=== PATIENT | female | born 1950 | race Caucasian/White ===

== ENCOUNTER 2017-10-01 11:11 | Inpatient (IN) | payer OTHER ==
[2017-09-10 11:35] VITALS: BMI 23.0
--- NOTE | 2017-09-10 12:18 | PAT Medication Instructions ---
Service Date Sep 10, 2017. Current Home Medication List Ibuprofen Tab (Advil), 400 MG PO QD PRN for Pain Pseudoephedrine-Guaifenesin (Mucinex D), 1 TAB PO QD PRN for Cough Medication Instructions For Your Scheduled Surgery -Check with your surgeon for instructions for: Ibuprofen Tab (Advil), 400 MG PO QD PRN for Pain - Hold the following medications the morning of surgery: Pseudoephedrine-Guaifenesin (Mucinex D), 1 TAB PO QD PRN for Cough - Take the following medications as scheduled the night before surgery: Pseudoephedrine-Guaifenesin (Mucinex D), 1 TAB PO QD PRN for Cough (if needed) If you have any questions please call us at [phone] or [phone] or [phone]
--- NOTE | 2017-09-10 12:45 | DIAGNOSTIC IMAGING REPORT ---
CHEST 2 VIEWS ROUTINE CLINICAL HISTORY: Preoperative evaluation. COMPARISON STUDY: No previous studies for comparison. FINDINGS: Lung volumes are normal. No pneumothorax or pleural effusion is identified. Cardiac size is normal. Mediastinal contours are normal. There is no evidence for pulmonary edema. IMPRESSION: No acute cardiopulmonary findings. Electronically signed by: Arpit Ly M.D. 09/10/2017 12:44 PM Dictated Date/Time: 09/10/2017 12:43 PM
[2017-09-10 13:15] LABS: BASO % 0.3 %; BASO ABS # 0.02 K/uL (0-0.2); EOS % 1.7 %; EOS ABS # 0.13 K/uL (0-0.5); HEMATOCRIT 41.4 % (37-47); HEMOGLOBIN 13.5 g/dL (12.0-16.0); IG# 0.01 K/uL (0.00-0.02); LYMPH % 30.1 %; LYMPH ABS # 2.29 K/uL (1.2-3.4); MEAN CELL VOLUME 91.8 fL (80-100); MEAN CORPUSCULAR HEMOGLOBIN 29.9 pg (25-34); MEAN CORPUSCULAR HGB CONC 32.6 g/dl (32-36); MEAN PLATELET VOLUME 9.5 fL (7.4-10.4); MONO % 7.6 %; MONO ABS # 0.58 K/uL (0.11-0.59); NEUT % 60.2 %; NEUT ABS # 4.59 K/uL (1.4-6.5); PLATELET COUNT 284 K/uL (130-400); RED CELL DISTRIBUTION WIDTH CV 13.2 % (11.5-14.5); RED CELL DISTRIBUTION WIDTH SD 44.3 fL (36.4-46.3); WHITE BLOOD COUNT 7.62 K/uL (4.8-10.8)
[2017-09-10 13:31] LABS: BLOOD UREA NITROGEN 16 mg/dl (7-18); CALCIUM 8.8 mg/dl (8.5-10.1); CARBON DIOXIDE 28 mmol/L (21-32); CREATININE 0.62 mg/dl (0.60-1.20); GLUCOSE 93 mg/dl (70-99); POTASSIUM 3.6 mmol/L (3.5-5.1); SODIUM 140 mmol/L (136-145)
[2017-09-10 13:36] LABS: PTT PATIENT 25.2 SECONDS (21.0-31.0)
--- NOTE | 2017-09-23 18:35 | HISTORY & PHYSICAL EXAMINATION ---
DATE OF ADMISSION: 10/01/2017 CHIEF COMPLAINT: Bilateral knee pain and discomfort, left side greater than the right. HISTORY OF PRESENT ILLNESS: A 67-year-old female who I have been following for several years dating back to 2010 for bilateral knee pain, DJD. We have been putting shots in her knee, which have become less successful overtime. She has chronic pain in both knees. The left side is a bit worse than the right. She is bothered by instability as well. The left knee gives out particularly on an unexpected basis. She now like to proceed with surgical treatment. She has been through extensive therapy many years ago. She continues to try and stay active, but having more difficulty doing so due to her knee pain and instability. Of note, the patient has a history of DDH and had her right hip replaced by Dr. Clark and had it redone a month or so later done in [place]. She had a left hip replaced in [place] in 2004. She has done well with respect to her hips for the most part. She notices a slight leg length discrepancy. PAST MEDICAL HISTORY: Significant for: 1. DDH. 2. Osteoarthritis. PAST SURGICAL HISTORY: Include: 1. Right hip replacement x2. 2. Left hip replacement done in [place] in 2004. 3. Hip surgery as an infant. ALLERGIES: CODEINE, WHICH CAUSE NAUSEA. CURRENT MEDICATIONS: Include: 1. Advil. 2. Mucinex. SOCIAL HISTORY: A 67-year-old female. She works as a realtor. She is . FAMILY HISTORY: Noncontributory. REVIEW OF SYSTEMS: Negative for diabetes, neurologic problems, vascular problems, or bleeding disorders. Denies any chest pain or shortness of breath. No history of DVT or PE. PHYSICAL EXAMINATION: GENERAL: Reveals a healthy, pleasant middle-aged female. Looks to be in excellent health. HEENT: Benign. NECK: Supple. No lymphadenopathy. LUNGS: Clear to auscultation. HEART: Regular rate and rhythm. ABDOMEN: Soft, nontender, nondistended. EXTREMITIES: Grossly neurovascularly intact except as follows. Examination of both knees reveals the patient walks with valgus alignment to her knees. Her valgus alignment is made worse with weightbearing. Range of motion of both knees is pretty symmetric with full extension and 20 degrees of flexion. There is no gross instability. She has got moderate size effusion in both knees. No particular pain with hip motion on either side. X-RAYS: X-rays of both knees were reviewed. Shows advanced bilateral knee DJD. She has got valgus alignment to her knees with complete loss of lateral joint space. ASSESSMENT: A 67-year-old white female with a history of DDH in the past, status post hip surgery, bilateral hip replacements with advanced bilateral knee DJD, left side worse than the right. She has failed conservative treatment and would like to have her left knee replaced. PLAN: We will take her to the operating room and do a left total knee replacement. The risks and benefits of this procedure were explained to the patient include, but not limited to DVT, PE, , infection, neurological injury, vascular injury, bleeding problem, pain, limited range of motion, stiffness, failure to relieve symptoms, incomplete relief of symptoms, need for further surgery in future, fracture, leg length inequality, nerve palsy, need for revision surgery, etc. The patient understands and desires. Informed consent was obtained. As far as discharge plans, she is planning to be discharged to home using her 's assistance. She is a Jehovah Witness who are not going to be able to give her blood. We will talk about the [facility] system. We may use that if the patient is acceptable for that.
[~2017-10-01] VITALS: Ht 162.6 cm; Wt 62.1 kg
[2017-10-01] VITALS (8 sets, daily range): BP systolic 91–146; BP diastolic 51–88; PULSE 72–94; TEMP 36.4–36.7; O2SAT 94–97; Ht 162.6 cm; Wt 62.1 kg
[2017-10-01] MEDS: TRANEXAMIC ACID INJ 1,000 MG x 1 Bag Intra-Op IV SCH ×4 (06:00→06:30)
[~2017-10-01 11:11] MED LIST: ACETAMINOPHEN 500 MG TAB PO SCH; ATROPINE SULFATE 0.1 MG/ML 5ML SYR IV PRN; BUPIVACAINE 0.25% 30 ML VIAL ONE; BUPIVACAINE 0.5 % 5 MG/1 ML PF 10ML VIAL ONE; BUPIVACAINE LIPOSOME 266 MG, BUPIVACAINE/EPINEPHRINE INJ 50 ML, SODIUM CHLORIDE 0.9% PF... INFIL SCH; CEFAZOLIN 2000MG IV PUSH 15 ML IV SCH; EpHEDrine SULFATE INJ 50 MG/ML AMP IV PRN; FAMOTIDINE 20 MG TAB PO SCH; FENTANYL CITRATE INJ 50 MCG/1 ML 2 ML VIAL IV PRN; GABAPENTIN 300 MG CAP PO SCH; HYDROmorphone INJ 0.5 MG/0.5 ML SYR IV PRN; IBUP-103 PO; LABETALOL HCL IV 5 MG/ML 20ML IV PRN; LACTATED RINGER'S 1000ML 1,000 ML IV SCH; LACTATED RINGER'S 1000ML 500 ML IV SCH; LACTATED RINGER'S 1000ML IV SCH; METOCLOPRAMIDE HCL 10 MG TAB PO SCH; ONDANSETRON INJ 2 MG/ML 2 ML VIAL IV PRN; PHENYLEPHRINE 100MCG/ML 5ML SYR IV PRN; PROMETHAZINE HCL INJ 12.5 MG in SODIUM CHLORIDE 0.9% 50ML 50 ML IV PRN; PSEU60TA80 PO; SCOPOLAMINE 1.5 MG TDSY TD SCH
--- NOTE | 2017-10-01 11:29 | History & Physical Bridge Note ---
H&P Re-Evaluation Bridge Note: I have examined the patient, reviewed the History & Physical and in the interval since the performance of the History & Physical I have noted the following changes of clinical significance: No changes noted
[2017-10-01] MEDS ORDERED: FENTANYL CITRATE INJ 50 MCG/1 ML 2 ML VIAL ONE (12:02)
[2017-10-01] MEDS ORDERED: MIDAZOLAM HCL 1 MG/ML 2ML VIAL ONE (12:02)
[2017-10-01] MEDS ORDERED: PROPOFOL IV EMULSION 10 MG/ML 20 ML VIAL ONE ×2 (12:04→15:25)
[2017-10-01] MEDS ORDERED: LIDOCAINE HCL 2% 2 ML VIAL (20MG/ML) ONE (12:04)
[2017-10-01] MEDS ORDERED: BUPIVACAINE LIPOSOME 1/3% 266 MG/20 ML VIAL ONE (13:24)
[2017-10-01] MEDS ORDERED: BUPIVACAINE 0.25% 30 ML VIAL ONE (13:24)
[2017-10-01] MEDS ORDERED: BACITRACIN 50000 UNIT VIAL ONE (13:24)
[2017-10-01] MEDS ORDERED: EpINEphrine INJ 1MG/ML AMP 1 MG/ML AMP ONE (13:24)
[2017-10-01] MEDS ORDERED: SODIUM CHLORIDE 0.9% PF 50 ML VIAL ONE (13:24)
[2017-10-01] MEDS ORDERED: EpHEDrine SULFATE INJ 50 MG/ML AMP ONE (14:09)
[2017-10-01] MEDS ORDERED: ONDANSETRON INJ 2 MG/ML 2 ML VIAL ONE (14:09)
[2017-10-01] MEDS ORDERED: DEXAMETHASONE SOD INJ 4 MG/ML VIAL ONE (14:09)
[2017-10-01] MEDS ORDERED: PHENYLEPHRINE 100MCG/ML 5ML SYR ONE (14:30)
--- NOTE | 2017-10-01 15:34 | [facility] Post Operative Brief Note ---
Immediate Operative Summary Operative Date October 01, 2017. Pre-Operative Diagnosis Left Knee Advanced Degenerative Joint Disease Post-Operative Diagnosis Left Knee Advanced Degenerative Joint Disease Procedure(s) Performed Left Total Knee Arthroplasty Surgeon Dr. Blackman General Production Manager Surgeon(s) RODRIGO Dee Estimated Blood Loss 50ml Findings Consistent with Post-Op Diagnosis Fluids (cc crystalloids) 1600 cc Specimens A. Left Knee Bone and Tissue Drains None Anesthesia Type MAC Spinal Regional Complication(s) none Disposition Accompanied Pt To Recover: no Disposition: Recovery Room / PACU Overlapping Procedure I was present for: the critical portions of procedure. I was immediately available: during the entire case
[2017-10-01] MEDS ORDERED: BISACODYL 10 MG SUPP PR PRN (15:45)
[2017-10-01] MEDS ORDERED: ALUMINUM/MAGNESIUM/SIMETH (MAALOX MAX) 30 ML UDC PO PRN (15:45)
[2017-10-01] MEDS ORDERED: HYDROmorphone INJ 0.5 MG/0.5 ML SYR IV PRN (15:45)
[2017-10-01] MEDS ORDERED: ZOLPIDEM TARTRATE 5 MG TAB PO PRN (15:45)
[2017-10-01] MEDS ORDERED: METOCLOPRAMIDE HCL INJ 5 MG/ML 2 ML VIAL IV PRN (15:45)
[2017-10-01] MEDS ORDERED: ONDANSETRON INJ 2 MG/ML 2 ML VIAL IV PRN (15:45)
[2017-10-01] MEDS ORDERED: SILVER SULFADIAZINE 1% CR 50 GM JAR EXT PRN (15:45)
[2017-10-01] MEDS ORDERED: MAGNESIUM HYDROXIDE SUSP 30 ML UDC PO PRN (15:45)
[2017-10-01] MEDS: CHECK SCOPOLAMINE PATCH PLACEMENT SCH ×2 (16:00→23:09)
--- NOTE | 2017-10-01 16:05 | DIAGNOSTIC IMAGING REPORT ---
L KNEE 2 VIEWS ROUTINE CLINICAL HISTORY: Degenerative arthritis. Postop study. COMPARISON: Outside radiograph dated 09/22/2017 DISCUSSION: There are postsurgical changes of a total left knee arthroplasty and patellar resurfacing. The femoral and tibial components appear well seated. There are overlying skin jasmyn. There is air within the soft tissues consistent with recent surgery. IMPRESSION: Postsurgical changes of a total left knee arthroplasty. Electronically signed by: Michele Gr M.D. 10/01/2017 4:03 PM Dictated Date/Time: 10/01/2017 4:02 PM
--- NOTE | 2017-10-01 16:29 | Anesthesiology Progress Note ---
Anesthesia Post Op Note Date & Time October 01, 2017 at 16:28 Vital Signs Pain Intensity: 0 Vital Signs Past 12 Hours Date Time Temp Pulse Resp B/P (MAP) Pulse Ox O2 Delivery O2 Flow Rate FiO2 10/01/17 16:10 36.2 96 18 131/84 98 Room Air 10/01/17 16:00 99 17 133/86 98 Room Air 10/01/17 15:50 95 18 128/74 98 Room Air 10/01/17 15:41 36.3 95 16 132/80 98 Room Air 10/01/17 11:55 36.7 89 18 146/76 97 Room Air Notes Mental Status: alert / awake / arousable, participated in evaluation Nausea / Vomiting: adequately controlled Pain: adequately controlled Airway Patency, RR, SpO2: stable & adequate BP & HR: stable & adequate Hydration State: stable & adequate Neuraxial Anesthesia: was administered, sensory block is resolving Anesthetic Complications: no major complications apparent
[2017-10-01] MEDS: D5W AND 1/2NSS + 20MEQ KCL 1,000 ML IV SCH (17:39)
[2017-10-01] MEDS: FERROUS GLUCONATE 324 MG TAB PO SCH (17:39)
[2017-10-01] MEDS: KETOROLAC TROMETHAMINE 15 MG/ML VIAL IV. SCH ×2 (17:41→23:09)
--- NOTE | 2017-10-01 18:49 | OPERATIVE REPORT ---
DATE OF OPERATION: 10/01/2017 SURGEON: Reji Blackman MD PUSH CONNECTOR ASSEMBLER: RODRIGO Luis PREOPERATIVE DIAGNOSIS: Left knee degenerative joint disease. POSTOPERATIVE DIAGNOSIS: Same. PROCEDURE PERFORMED: Left cemented posterior stabilized total knee arthroplasty. COMPLICATIONS: None. ESTIMATED BLOOD LOSS: 50 mL. FLUID REPLACEMENT: 1600 mL crystalloid fluid replacement. TOURNIQUET TIME: 64 minutes at 300 mmHg. ANESTHESIA: Spinal with adductor canal block. DRAINS: None. SPECIMENS: Left knee sent for pathology. 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 I have been treating for the past 8 years or so with injections into her knee despite severe arthritis. This has become less successful over time. She would like to proceed with total knee arthroplasty. She had a severe valgus deformity to her knee and an unstable knee with episodes of giving out or falling. OPERATIVE FINDINGS: Operative findings revealed advanced grade 4 bone on bone disease, primarily in the lateral compartment extensively. She did have some more focal grade 4 changes in the medial and patellofemoral compartments. She had a valgus deformity to her knee. She had MCL laxity and large knee joint effusion. OPERATIVE IMPLANTS: Operative implants consisted of 1. Biomet Vanguard size 62.5 left posterior stabilized femoral component. 2. Biomet size 63 tibial tray. 3. A 10 mm posterior stabilized polyethylene insert. 4. A 31 x 8 all poly patella. OPERATIVE PROCEDURE: The patient was taken to the operating room, identified and placed on the operating table in supine position. All contact areas were appropriately padded. IV antibiotics provided by anesthesia team. A spinal anesthetic and adductor canal block were provided in the holding area. Cox catheter was placed in sterile fashion. A left thigh tourniquet was then placed, and the left lower extremity was then prepped and draped in the usual sterile fashion. The left leg was elevated and exsanguinated with Esmarch, and tourniquet was placed at 300 mmHg. An anterior approach to the left knee was then performed through a longitudinal incision centered over the patella. Sharp dissection was carried down through subcutaneous tissue down to the level of the extensor mechanism. A medial parapatellar arthrotomy incision was made. Some subperiosteal dissection was carried out medially. The fat pad was resected from beneath the patellar tendon. Lateral patellofemoral ligament was released. The patella was everted. Knee was flexed. The osteophytes were taken off the distal femur. The ACL and PCL were then released from the distal femur and the tibia subluxated anteriorly. The external tibial alignment jig was then placed in the anterior face of the tibia and adjusted 14 mm medially. Proximal tibial cut was made to remove about 3 mm of bone from the medial side. The tibia was sized to a size 63. Attention was then drawn to the femur. The distal femur was entered with a sharp drill bit. Intramedullary canal was suctioned. A left 5 degree valgus cutting guide was placed. Distal femoral cutting block was pinned in place. Distal femoral cut was made to take an additional 3 mm bone off distal femur. I brought the knee out into full extension. I then did just a little bit of pie crusting in the IT band as it was not excessively tight. Great care was taken to protect the peroneal nerve at all times. The knee was then flexed. The femur was sized to a size 62.5. We did downsize this slightly. The AP cutting block was pinned parallel to the epicondylar axis, which was 8 degrees of external rotation in this valgus knee. The anterior cut, anterior chamfer, posterior cut, posterior chamfer cuts were made. Box cutting guide was placed and adjusted slightly lateral, and the box cut was made. The knee was flexed. The remnants of the medial and lateral menisci were excised. The osteophytes were taken off the posterior aspect of the femur. A trial femoral component was placed. Tibial tray was pinned in the maximum external rotation, and drill and stem punch were used to create defects in the proximal tibia for the tibial tray. The knee was then trialed, and the 10 mm insert fit most appropriately. There was a little bit of lax in extension with varus and valgus stressing, but the 12 seemed too tight. I did try the posterior stabilized plus insert, and I thought it was too constrained. Therefore, we elected to use the 10 PS insert. Attention was then drawn to the patella. The patella was cleaned of all soft tissues. The patellar button was cut and sized to a size 31. Lug holes were drilled for a 31 patella. Lateral osteophyte was removed. Patella button was placed. Knee was taken through range of motion and patella tracked nicely with no thumbs test. Attention was then drawn toward placement of permanent components. All trial components removed. Bone plug was placed in the distal femur to limit blood loss. A double batch Palacos G cement was mixed. A left size 62.5 posterior stabilized femoral component, size 60 for the tibial tray, a 10 mm posterior stabilized polyethylene insert, and a 31 x 8 all poly patella were then cemented in place. Knee was brought into full extension until cement hardened. Final cement check was then performed. The pericapsular tissues were injected with a total of 100 mL combination of 20 mL of Exparel, 30 mL of normal saline, 50 mL of 0.25% Marcaine with epinephrine. The patient did receive 1 g of tranexamic acid. I then spent quite a bit of time making sure we had adequate hemostasis. The tourniquet was let down for a final tourniquet time of 64 minutes. Hemostasis was meticulously obtained due to her Jehovah Witness status and need for limited blood loss. We spent quite a bit of time assuring complete hemostasis. I then irrigated the wound again. The extensor mechanism was then closed with a combination of #1 PDS suture and #1 Vicryl suture in a [id number] fashion. Extensor mechanism was checked and found to be intact. The subcutaneous tissues were then closed with 2 Dexon suture in a buried interrupted fashion. Skin was closed with skin jasmyn. Leg was then cleaned, dried, and a sterile dressing of Xeroform, 4x4, sterile cast padding, and Medhat bandage were applied. The patient was then transferred to the recovery room in stable condition. The patient tolerated the procedure well at the end of case. All needle and sponge counts were correct at the end of the operation. I attest to the content of the Intraoperative Record and any orders documented therein. Any exception s are noted below.
[2017-10-01] MEDS: ACETAMINOPHEN 500 MG TAB PO SCH (21:10)
[2017-10-01] MEDS: DOCUSATE SODIUM 100 MG CAP PO SCH (21:11)
[2017-10-01] MEDS: SENNA 8.6 MG TAB PO SCH (21:11)
[2017-10-01] MEDS: ASPIRIN 81 MG ECTAB PO SCH (21:11)
[2017-10-01] MEDS: CEFAZOLIN IV 1,000 MG in SYRINGE 0 ML IV SCH (21:12)
[2017-10-01] MEDS ORDERED: TRANEXAMIC ACID INJ 1,000 MG in SODIUM CHLORIDE 0.9% 100ML 100 ML IV SCH (21:30)
[2017-10-02] MEDS: ACETAMINOPHEN 500 MG TAB PO SCH ×3 (03:59→20:21)
[2017-10-02] MEDS: D5W AND 1/2NSS + 20MEQ KCL 1,000 ML IV SCH ×2 (03:59→13:30)
[2017-10-02 04:00] VITALS: BP 96/57; PULSE 66; TEMP 36.6; O2SAT 97
[2017-10-02] MEDS: KETOROLAC TROMETHAMINE 15 MG/ML VIAL IV. SCH ×4 (05:44→23:56)
[2017-10-02] MEDS: CEFAZOLIN IV 1,000 MG in SYRINGE 0 ML IV SCH (05:44)
[2017-10-02 06:41] LABS: HEMATOCRIT 30.9 % (37-47); HEMOGLOBIN 10.2 g/dL (12.0-16.0); MEAN CELL VOLUME 91.4 fL (80-100); MEAN CORPUSCULAR HEMOGLOBIN 30.2 pg (25-34); MEAN PLATELET VOLUME 8.7 fL (7.4-10.4); PLATELET COUNT 240 K/uL (130-400); RED CELL DISTRIBUTION WIDTH CV 13.1 % (11.5-14.5); WHITE BLOOD COUNT 12.07 K/uL (4.8-10.8)
[2017-10-02 07:21] LABS: CALCIUM 7.8 mg/dl (8.5-10.1); CREATININE 0.61 mg/dl (0.60-1.20); POTASSIUM 4.3 mmol/L (3.5-5.1)
[2017-10-02 07:28] VITALS: BP 94/58; PULSE 70; TEMP 36.4; O2SAT 98
[2017-10-02] MEDS: CHECK SCOPOLAMINE PATCH PLACEMENT SCH ×3 (08:00→23:57)
[2017-10-02] MEDS: FERROUS GLUCONATE 324 MG TAB PO SCH ×3 (09:56→16:52)
[2017-10-02] MEDS: ASPIRIN 81 MG ECTAB PO SCH ×2 (09:57→20:21)
[2017-10-02] MEDS: PANTOprazole SOD 40 MG TAB PO SCH (09:57)
[2017-10-02] MEDS: DOCUSATE SODIUM 100 MG CAP PO SCH ×2 (09:57→20:20)
[2017-10-02] MEDS: MULTIVITAMIN TAB PO SCH (09:57)
--- NOTE | 2017-10-02 10:21 | PROGRESS NOTE ---
DATE: 10/02/2017 SUBJECTIVE: This is a 67-year-old white female postop day 1 from a left knee replacement, doing pretty well. Pain has been reasonably well-controlled. Having a pretty good evening. OBJECTIVE: VITAL SIGNS: Temperature 36.4. Vital signs stable. PHYSICAL EXAMINATION: GENERAL: Physical examination shows a pleasant, middle-aged female. She is walking around her room this morning with a walker and doing reasonably well. LUNGS: Clear to auscultation. HEART: Heart has a regular rate and rhythm. ABDOMEN: Soft, nontender, nondistended. EXTREMITY EXAMINATION: Grossly neurovascularly intact except as follows: Examination of the left leg reveals the leg to be well-aligned. Dressing is clean, dry, and intact. She can dorsiflex and plantarflex her foot appropriately. She is neurologically intact. LABORATORIES: Hemoglobin 10.2. Hematocrit 30.9. Electrolytes are stable. ASSESSMENT: This is a 67-year-old white female who is a Jehovah Witness postop day 1 from a left knee replacement, doing pretty well. Pain is reasonably well-controlled. She is anemic, but currently without symptoms. She is a Jehovah Witness and will not accept blood products. PLAN: 1. DVT prophylaxis including thigh-high TEDs, SCDs, and aspirin twice a day. 2. PT/OT. Weightbear as tolerated. Left total knee protocol. 3. Pain control, doing pretty well with current pain regimen. 4. Anemia. We will continue iron supplementation. 5. Disposition: Plan to discharge to home with some home health once adequately recovered.
[2017-10-02 11:11] VITALS: BP 94/55; PULSE 82; TEMP 36.8; O2SAT 97
[2017-10-02] MEDS: TRAMADOL HCL 50 MG TAB PO PRN ×3 (12:02→23:55)
[2017-10-02 15:18] VITALS: BP 92/51; PULSE 76; TEMP 36.7; O2SAT 98
[2017-10-02] MEDS ORDERED: ULT50X PO (19:11)
[2017-10-02] MEDS ORDERED: ACET-24 PO (19:11)
[2017-10-02] MEDS ORDERED: ONDA4TAB65 PO (19:11)
[2017-10-02] MEDS ORDERED: ASPI-320 PO (19:11)
[2017-10-02] MEDS ORDERED: FRRG PO (19:11)
--- NOTE | 2017-10-02 19:15 | Discharge Instructions ---
Discharge Instructions Date of Service October 02, 2017. Admission Reason for Admission: Left Knee Degenerative Joint Disease, Knee Pain Discharge Discharge Diagnosis / Problem: Left Knee Replacement Discharge Goals Goal(s): Decrease discomfort, Improve function, Increase independence, Improve disease control Activity Recommendations Activity Limitations: per Instructions/Follow-up section Weightbearing Status: Left weightbearing . Instructions / Follow-Up Instructions / Follow-Up ACTIVITY RECOMMENDATIONS: Physical Therapy: * You will go to physical therapy three times each week for four to six weeks after your surgery in order to regain your knee range of motion and to retrain your knee to work properly. * It is just as important to make sure you are getting your knee perfectly straight as it is to regain your knee bend. * Taking a pain pill an hour before therapy can help you have a more productive and comfortable therapy session. Home Exercise: * You were shown a series of exercises (heel props, heel slides, etc.) in the hospital. Do these exercises three to four times each day including the exercises you were shown in physical therapy. Walking: * Get up and walk several times each day. For the first four weeks, try not to stand or walk for more than one hour at a time. If you do stand or walk for more than one hour, you will not hurt anything, but your knee and leg will likely swell. * As you feel comfortable, you may change from the walker or crutches to a cane and then to independent walking. MEDICATIONS: New Medicine: * You will likely be taking one or more of these medications: 1. Tramadol - A quick and shorter-acting pain medication. Take one to two tablets every four to six hours to lessen your pain. 2. Iron Sulfate - Take two times each day for the month after surgery to help you replace the blood lost during surgery. 3. Aspirin - Thins your blood to lessen the chance of forming a blood clot. * The most common side effects of pain medicine and iron are nausea and constipation. If nausea or constipation is too much of a problem or if you have any questions about your new medicines or doses, call [facility] at . We will try to help you manage these issues. VERY IMPORTANT TO READ AND REVIEW" Pain: * The immediate post-operative period after knee replacement surgery is often quite painful. * You are given a prescription for pain medicine. You should take it, as directed, when you need it, especially before physical therapy and before going to bed. Pain that interferes with sleep is very common and can last several months. * You will likely need pain medicine for the first four to six weeks. It will not stop all of the pain. The pain will lessen and as you feel better, you may change to milder pain medicine such as Tylenol. * The most common side effects of pain medicine are nausea and constipation, so don't take more than you need. SPECIAL CARE INSTRUCTIONS: TEDs/Elastic Stockings: * The white elastic stockings help limit swelling and prevent blood clots from forming in your legs. The more you wear them, the more they work. * Wear them for six weeks after knee replacement surgery and four weeks after partial knee replacement. Prevention of Infection: * Take antibiotics one hour before any dental cleaning, dental work, urological procedure, gastrointestinal procedure or any invasive surgery in order to prevent your new joint from getting infected. * You may get the antibiotics from the doctor performing the procedure or you may call our office at before and we will call in a prescription to the pharmacy of your choice. Things to Watch For: * Drainage from the incision site that occurs more than one week after your surgery. * Severely increased knee/leg pain or swelling. * Increased redness at the incision site. * Fever above 102 degrees Fahrenheit. * Unusual chest pain or shortness of breath. * Unusual pain or burning with urination. Call [facility] at with any of the above problems or if you have any questions about your medicines or recovery. FOLLOW UP VISIT: Make an appointment to see your doctor for approximately two weeks after surgery for a progress check and staple removal by calling the office at . Current Hospital Diet Patient's current hospital diet: Regular Diet Discharge Diet Recommended Diet: Regular Diet Procedures Procedures Performed: Left Total Knee Arthroplasty Pending Studies Studies pending at discharge: no Medical Emergencies . Who to Call and When: Medical Emergencies: If at any time you feel your situation is an emergency, please call [phone] immediately. . Non-Emergent Contact Non-Emergency issues call your: Surgeon . "Provider Documentation" section prepared by Reji Blackman. .
[2017-10-02] MEDS: SENNA 8.6 MG TAB PO SCH (20:20)
[2017-10-02 23:21] VITALS: BP 98/60; PULSE 84; TEMP 36.8; O2SAT 95
[2017-10-03] MEDS: KETOROLAC TROMETHAMINE 15 MG/ML VIAL IV. SCH (04:31)
[2017-10-03] MEDS: ACETAMINOPHEN 500 MG TAB PO SCH (04:33)
[2017-10-03 05:59] VITALS: BP 87/53; PULSE 54; TEMP 36.6; O2SAT 97
[2017-10-03 06:02] VITALS: BP 99/64; PULSE 80
[2017-10-03] MEDS: TRAMADOL HCL 50 MG TAB PO PRN (08:13)
[2017-10-03] MEDS: CHECK SCOPOLAMINE PATCH PLACEMENT SCH (08:13)
[2017-10-03] MEDS: PANTOprazole SOD 40 MG TAB PO SCH (08:14)
[2017-10-03] MEDS: DOCUSATE SODIUM 100 MG CAP PO SCH (08:14)
[2017-10-03] MEDS: MULTIVITAMIN TAB PO SCH (08:14)
[2017-10-03] MEDS: ASPIRIN 81 MG ECTAB PO SCH (08:15)
[2017-10-03] MEDS: FERROUS GLUCONATE 324 MG TAB PO SCH (08:30)
--- NOTE | 2017-10-03 09:00 | PROGRESS NOTE ---
DATE: 10/03/2017 SUBJECTIVE: A 67-year-old white female postop day 2 from a left knee replacement. She is doing okay. A little bit more pain this morning. Took 2 pain pills at once and got kind of dizzy yesterday. No chest pain or shortness of breath. Not feeling currently dizzy or lightheaded. OBJECTIVE: VITAL SIGNS: Temperature 36.6. Vital signs stable. GENERAL: Reveals a pleasant elderly female. She is sitting up in her bedside chair, looks reasonably comfortable. EXTREMITIES: Examination of the left leg reveals the dressing to be clean, dry, and intact. Leg is well aligned. Calf is soft and supple. She is neurologically intact. ASSESSMENT: A 67-year-old white female Jehovah Witness postop day 2 from a left knee replacement, doing reasonably well. Pain is reasonably well controlled. Does not tolerate pain meds real well. She is anemic, but without symptoms. PLAN: 1. DVT prophylaxis including thigh high TEDs, SCDs, and aspirin twice a day 2. PT/OT. Weight bear as tolerated. Left total knee protocol. 3. Pain control. Doing reasonably well with current pain regimen. We are going to have her take one pain pill at a time to avoid. It does limit side effects. 4. Anemia. Currently, asymptomatic. Continue iron supplementation. 5. Disposition. Plan to discharge to home. She is going to go home and is going to go to therapy as an outpatient.
[2017-10-03 09:23] VITALS: BP 99/64; PULSE 80; TEMP 36.6; O2SAT 97
--- NOTE | 2017-10-04 16:42 | EDITING REQUIRED CODING QUERY ---
CODING QUERY: ANEMIA To promote full compliance with coding requirements relating to patient care, physician participation is requested in all cases of neurological surgery teacher uncertainty. Please assist us with the question(s) below: Coding Question(s): The record reflects the following clinical documentation: Asymptomatic anemia following total knee arthroplasty procedure. There are several coding choices for this diagnosis and more specificity is needed for code selection. Please indicate the type of anemia this patient had: (x ) Acute blood loss anemia (x ) Acute postoperative anemia due to dilutional fluids ( ) Chronic blood loss anemia ( ) Iron deficient anemia due to blood loss ( ) Iron deficiency anemia ( ) Anemia, unspecified or other ( ) Other: (please specify) ( ) Unable to determine Thank you for your time, SAMM Burch, TELEVISION ANNOUNCER
--- NOTE | 2017-10-05 15:14 | DISCHARGE SUMMARY ---
ADMITTING PHYSICIAN AND SURGEON: Dr. Blackman. ADMITTING DIAGNOSIS: Left knee degenerative joint disease. SURGERY PERFORMED: Left total knee arthroplasty. SECONDARY DIAGNOSES: DDH, osteoarthritis. CONSULTS: None obtained. HISTORY AND PHYSICAL EXAMINATION: Well documented in the patient's chart. HOSPITAL COURSE: The patient is a 67-year-old female, admitted on 10/01/2017, underwent total knee arthroplasty, tolerated the procedure well. There were no complications. She was transferred to the PACU postoperatively and later to the orthopedic floor for further care. She was given Ancef for antibiotic prophylaxis, JUAREZ stockings, SCDs and aspirin for DVT prophylaxis. Hemoglobin, hematocrit and vital signs were monitored during hospital stay and remained stable. She developed some postoperative anemia. She was given iron supplementation. She is a Mu-ism, did not receive any blood transfusions. There were no complications during her hospital stay. By postoperative day 2, she was tolerating a regular diet, pain was controlled with oral pain medicine. She was participating in physical therapy. On postop day 2, she was discharged home, given printed discharge instructions including new prescriptions for extra-strength Tylenol, aspirin, iron supplement, Zofran and tramadol. Continue her home medicines. Continue physical therapy. Weightbearing as tolerated, JUAREZ stockings. Follow up in 10-12 days or sooner if there are any problems or concerns.
== END 2017-10-03 11:07 | disposition home or self-care (01) | DRG 470 ==
LOC: C.ACU 11:11 → C.3E 11:41 → ENRESERV 15:53
PROVIDERS: ADMIT Orthopaedic Surgery Sports Medicine; ATTEND Orthopaedic Surgery Sports Medicine
PROC: 0SRD0J9 Replacement of Left Knee Joint with Synthetic Substitute, Cemented, Open Approach (ICD-10-PCS; principal; 2017-10-01 13:00)
DX: M17.0 Bilateral primary osteoarthritis of knee (principal); D62 Acute posthemorrhagic anemia; M23.8X2 Other internal derangements of left knee; M23.52 Chronic instability of knee, left knee; M21.062 Valgus deformity, not elsewhere classified, left knee; M21.061 Valgus deformity, not elsewhere classified, right knee; M25.462 Effusion, left knee; M25.461 Effusion, right knee; Z96.643 Presence of artificial hip joint, bilateral; Z88.5 Allergy status to narcotic agent

== ENCOUNTER 2020-03-27 10:55 | Observation (INO) ==
--- OUTSIDE RECORDS SUMMARY | 2020-03-27 10:57 | External Medical Summary | Continuity of Care Document ---
:1950 Author Name Piedad Grimes, Provider Address Unavailable Unavailable , Care Team Providers Name Role Phone [email or web address] BEAR Unavailable Unavailable Unavailable Unavailable Unavailable Problems Cosmetic Concerns Wrinkles Allergies and Adverse Reactions No Known Allergies (Allergy) Medications Medications not documented Procedures History of Reported Hx Of Hip Replacement Status: Completed Immunizations Immunizations not documented Family History Unknown Family Member Family history of Reported Family History Of Status: Active Comments: Family History Heart Disease Social History - Smoking Status Never smoked tobacco Plan of Treatment Planned Observations Planned Goals not documented Results No Known Results Results not documented Encounters Appointment; Renee Bullard M.D. 23-Mar-2012 9:45 Encounter Diagnosis: Problem not documented
--- OUTSIDE RECORDS SUMMARY | 2020-03-27 10:57 | External Medical Summary | Continuity of Care Document ---
:1950 Author Name Piedad Grimes, Provider Address Unavailable Unavailable , Care Team Providers Name Role Phone Renee Bullard [email or web address] ROZINA BEAR Unavailable Unavailable Unavailable Unavailable Unavailable [...]
--- NOTE | 2020-03-27 11:25 | Communication Note ---
Date of Service: March 27, 2020 This patient was seen in concert with Dr. Mckenzie and we discussed and agreed upon the history, physical, assessment, and plan. See attending's note for details. Resident Activity Tracking Resident Involvement: Resident Care Provided Care Provided: Adult ED
--- NOTE | 2020-03-27 11:27 | Emergency Department Note ---
Impression & Plan Exertional chest pain, Elevated blood pressure reading, Family history of coronary artery disease ED Provider Note NAME: DONNA BELTRAN AGE: 69 SEX: F ARRIVES VIA: Walk-In INFORMANT: Patient, ED PROVIDER(S): Lowell Mckenzie MD CHIEF COMPLAINT: Chest pain PLAN: Disposition: Admit MEDICAL DECISION MAKING: The patient is a pleasant 69-year-old woman, previously healthy who presents emerged department with episode of substernal chest pain this morning 1-3 am with left arm/jaw numbness, which resolved on its own prior to arrival but upon discussion with her son was encouraged to come to the emergency department for evaluation. Patient symptoms occur in the setting of her acknowledgment that she has had exertional chest pain that has been fairly consistent over the past year and is to the point where she often has to immediately stop what she is doing such as when she is raking leaves. At this time the patient denies any symptoms. She reports feeling healthy otherwise denies fevers, chills, cough, congestion, nausea, vomit, diarrhea, urinary symptoms. On arrival she is well-appearing in no acute distress, afebrile, initially hypertensive 190/100s and vital signs otherwise stable. EKG did not demonstrate overt acute ischemia. Chest x-ray negative for acute process. WBC, H/H and platelets within normal limits. Chemistry without acidosis. Electrolytes and LFTs unremarkable. Troponin negative/undetectable. CTA of the chest was performed and negative for aortic dissection. There is note of mild bronchiectasis within the lower lobes. I did review the patient's results with her and her son at the bedside and given her concerning story for exertional chest pain she was agreeable with recommendation for admission for further evaluation. Heart score 6, moderate risk. Given patient has been completely asymptomatic in ED, will defer treatment to admitting team. Case was discussed with Dr. Rojas, [facility] hospitalist, who will evaluate the patient for admission. This patient was managed with the assistance of resident, Dr. Humberto England. I discussed the case with the resident, examined the patient, and confirm the findings and plan as documented in this note. Triage Nursing notes reviewed and agree them. Prior medical records reviewed Vital Signs: reviewed and remarkable for hypertension. Differential diagnosis: Cardiac ischemia, aortic dissection, pulmonary embolism, pneumothorax, pneumonia, pericarditis, myocarditis, esophageal rupture, GERD, cholecystitis, pancreatitis, musculoskeletal, as well as other pathologies. ER treatment provided: See below. Diagnostics interpreted by me: ECG: Normal sinus rhythm, 100 bpm, no ectopy, nonspecific ST and T wave abnormality, no overt ST elevation or depression, QTC 456, QRS 82. Cardiac Monitoring: An order for continuous cardiac monitoring was placed and demonstrated Normal sinus rhythm, 100 bpm, no ectopy, Laboratory studies: See below Imaging studies: XR chest 1V portable HISTORY: 69 years-old Female Chest Pain acute atypical chest pain COMPARISON: Chest radiographs 09/10/2017 TECHNIQUE: Portable AP view of the chest FINDINGS: Cardiomediastinal and hilar silhouettes are within normal limits. No pneumothorax, pleural effusion, airspace consolidation or overt pulmonary edema. Bones of the chest appear grossly intact. IMPRESSION: No acute process. -- CT ANGIOGRAPHY OF THE CHEST DISSECTION PROTOCOL CLINICAL HISTORY: chest pain, new htn -- r/o dissection COMPARISON STUDY: Chest radiograph September 10, 2017 and March 27, 2020. TECHNIQUE: Before and following the IV administration of 119 mL of Optiray-320, helical axial images of the chest were obtained. Maximal intensity projections and sagittal and coronal reformats were viewed on an independent 3D workstation. IV contrast was administered without complication. Automated exposure control was utilized for the study. A dose lowering technique was utilized adhering to the principles of ALARA. CT DOSE: 566.08 mGy.cm FINDINGS: Caliber of the thoracic aorta is normal. There is no intramural hematoma. There is no thoracic aortic dissection. The size of the heart is normal. There is no pericardial effusion. No pulmonary emboli are present. No enlarged axillary, mediastinal or hilar lymph nodes are present. A small hiatal hernia is noted. There is no pneumothorax or pleural effusion. No consolidation is identified to suggest pneumonia. Several tiny subpleural nodules are likely benign. There is mild bilateral lower lobe bronchiectasis. Upper abdomen is unremarkable. IMPRESSION: 1. No thoracic aortic dissection. 2. No acute process within the chest. 3. Mild bronchiectasis within the bilateral lower lobes. 4. Small hiatal hernia. Consultation(s): Case was discussed with Dr. Rojas, [facility] hospitalist, who will evaluate the patient for admission. HPI: The patient is a pleasant 69-year-old woman, previously healthy who presents emerged department with episode of substernal chest pain this morning 1-3 am with left arm/jaw numbness, which resolved on its own prior to arrival but upon discussion with her son was encouraged to come to the emergency department for evaluation. Patient symptoms occur in the setting of her acknowledgment that she has had exertional chest pain that has been fairly consistent over the past year and is to the point where she often has to immediately stop what she is doing such as when she is raking leaves. At this time the patient denies any symptoms. She reports feeling healthy otherwise denies fevers, chills, cough, congestion, nausea, vomit, diarrhea, urinary symptoms. ROS: See above HPI for pertinent positives & negatives. A total of 10 systems reviewed and were otherwise negative. PAST MEDICAL HISTORY:See Below PAST SURGICAL HISTORY:See Below FAMILY HISTORY:See Below SOCIAL HISTORY:See Below HOME MEDICATIONS:See Below ALLERGIES:See Below VITALS:See Below PHYSICAL EXAMINATION: GENERAL: Awake, alert, well-appearing, in no distress HENT: Normocephalic, atraumatic. Oropharynx with dry mucous membranes and otherwise unremarkable. EYES: Normal conjunctiva. Sclera non-icteric. NECK: Supple. No nuchal rigidity. FROM. No JVD. RESPIRATORY: Clear to auscultation. CARDIAC: Regular rate, normal rhythm. Extremities warm and well perfused. Pulses equal. ABDOMEN: Soft, non-distended. No tenderness to palpation. No rebound or guarding. No masses. RECTAL: Deferred. MUSCULOSKELETAL: Chest examination reveals no tenderness. The back is symmetrical on inspection without obvious abnormality. There is no CVA tenderness to palpation. No joint edema. LOWER EXTREMITIES: Calves are equal size bilaterally and non-tender. No edema. No discoloration. NEURO: Normal sensorium. No sensory or motor deficits noted. SKIN: No rash or jaundice noted. 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 Beliefs That Will Affect Care: Synagogue Synagogue Beliefs: No blood transfusion Current Living Situation: Spouse Other Information That Helps Us Care for You: No Feels Safe at Home: Yes Safety Concerns: Feels Safe At This Time Assistive Devices: Glasses Allergies Allergies Allergy/AdvReac Type Severity Reaction Status Date / Time CODIENE AdvReac Unknown CODIENE Uncoded 03/27/20 11:56 Home Meds Home Medications Medication Instructions Recorded Confirmed aspirin [Aspirin Low Dose] 81 mg PO DAILY 03/27/20 03/27/20 ibuprofen 200 mg PO Q6H PRN 03/27/20 03/27/20 Results & Data (ED) Vital Signs Vital Signs - 24 hr 03/27/20 10:59 03/27/20 11:10 03/27/20 11:30 Temperature 36.9 C Temperature Source Oral Pulse Rate 91 H 102 H 87 Pulse Rate from SpO2 Sensor 101 H 88 Respiratory Rate 18 16 14 Respiratory Effort / Characteristics Non-Labored Spontaneous Respiratory Depth Normal Respiratory Pattern Regular Blood Pressure 191/106 H 173/96 H 139/89 Blood Pressure Mean 134 105 119 Blood Pressure Position Sitting Pulse Oximetry 98 98 97 Oxygen Delivery Method Room Air Room Air Room Air Sepsis Recent Fever Within 48 Hours No Sepsis New/Unexplained Change in Mental Status N/A Sepsis Action Taken by Nursing No Action Required 03/27/20 11:32 03/27/20 12:00 03/27/20 12:49 Temperature Temperature Source Pulse Rate 88 91 H Pulse Rate from SpO2 Sensor 87 91 H Respiratory Rate 20 21 Respiratory Effort / Characteristics Respiratory Depth Respiratory Pattern Blood Pressure 143/86 H 166/99 H Blood Pressure Mean 97 110 Blood Pressure Position Pulse Oximetry 96 95 Oxygen Delivery Method Room Air Room Air Room Air Sepsis Recent Fever Within 48 Hours Sepsis New/Unexplained Change in Mental Status Sepsis Action Taken by Nursing 03/27/20 13:00 03/27/20 13:30 03/27/20 14:00 Temperature Temperature Source Pulse Rate 96 H 84 83 Pulse Rate from SpO2 Sensor 94 H 84 84 Respiratory Rate 24 24 18 Respiratory Effort / Characteristics Respiratory Depth Respiratory Pattern Blood Pressure 151/83 H 159/89 H 147/95 H Blood Pressure Mean 111 98 112 Blood Pressure Position Pulse Oximetry 94 99 99 Oxygen Delivery Method Room Air Room Air Room Air Sepsis Recent Fever Within 48 Hours Sepsis New/Unexplained Change in Mental Status Sepsis Action Taken by Nursing 03/27/20 14:34 03/27/20 15:00 03/27/20 15:30 Temperature Temperature Source Pulse Rate 96 H 88 93 H Pulse Rate from SpO2 Sensor 98 H 88 91 H Respiratory Rate 20 23 22 Respiratory Effort / Characteristics Respiratory Depth Respiratory Pattern Blood Pressure 172/92 H 163/96 H Blood Pressure Mean 112 128 Blood Pressure Position Pulse Oximetry 97 97 97 Oxygen Delivery Method Sepsis Recent Fever Within 48 Hours Sepsis New/Unexplained Change in Mental Status Sepsis Action Taken by Nursing 03/27/20 15:31 Temperature Temperature Source Pulse Rate 87 Pulse Rate from SpO2 Sensor 83 Respiratory Rate 22 Respiratory Effort / Characteristics Respiratory Depth Respiratory Pattern Blood Pressure 135/71 Blood Pressure Mean 111 Blood Pressure Position Pulse Oximetry 97 Oxygen Delivery Method Sepsis Recent Fever Within 48 Hours Sepsis New/Unexplained Change in Mental Status Sepsis Action Taken by Nursing Laboratory Data Attestation: I reviewed the patient's lab results. Result diagrams: 03/27/20 11:38 03/27/20 11:38 Lab Results 03/27/20 03/27/20 03/27/20 Range/Units 11:38 11:38 11:38 WBC 6.70 (4.8-10.8) K/uL RBC 4.20 (4.2-5.4) M/uL Hgb 12.9 (12.0-16.0) g/dL Hct 39.3 (37-47) % MCV 93.6 (80-100) fL MCH 30.7 (25-34) pg MCHC 32.8 (32-36) g/dL RDW Std Deviation 46.2 (36.4-46.3) fL RDW Coeff of Mack 13.5 (11.5-14.5) % Plt Count 326 (130-400) K/uL MPV 9.5 (7.4-10.4) fL Immature Gran % (Auto) 0.1 % Neut % (Auto) 58.0 % Lymph % (Auto) 30.9 % Rutherford % (Auto) 8.8 % Eos % (Auto) 1.8 % Baso % (Auto) 0.4 % Neut # (Auto) 3.88 (1.4-6.5) K/uL Lymph # (Auto) 2.07 (1.2-3.4) K/uL Rutherford # (Auto) 0.59 (0.11-0.59) K/uL Eos # (Auto) 0.12 (0-0.5) K/uL Baso # (Auto) 0.03 (0-0.2) K/uL Immature Gran # (Auto) 0.01 (0.00-0.02) K/uL PT Cancelled INR Cancelled APTT Cancelled PTT Ratio Cancelled D-Dimer Cancelled Sodium 144 (136-145) mmol/L Potassium 3.8 (3.5-5.1) mmol/L Chloride 111 H (98-107) mmol/L Carbon Dioxide 27 (21-32) mmol/L Anion Gap 6.0 (3-11) BUN 11 (7-18) mg/dl Creatinine 0.57 L (0.6-1.2) mg/dl Est Cr Clr Drug Dosing 74.9 ml/min Est GFR ( Amer) 108.1 Est GFR (Non-Af Amer) 93.3 BUN/Creatinine Ratio 19.0 (10-20) Glucose 95 (70-99) mg/dl Calcium 9.0 (8.5-10.1) mg/dl Total Bilirubin 0.3 (0.2-1) mg/dl AST 24 (15-37) U/L ALT 29 (12-78) U/L Alkaline Phosphatase 76 (45-117) U/L Troponin I < 0.015 (0-0.045) ng/ml Total Protein 7.3 (6.4-8.2) gm/dl Albumin 3.9 (3.4-5.0) gm/dl Globulin 3.4 (2.5-4.0) gm/dl Albumin/Globulin Ratio 1.1 (0.9-2) Lipase 292 (73-393) U/L Specimen Hemolysis 03/27/20 Range/Units 12:09 WBC (4.8-10.8) K/uL RBC (4.2-5.4) M/uL Hgb (12.0-16.0) g/dL Hct (37-47) % MCV (80-100) fL MCH (25-34) pg MCHC (32-36) g/dL RDW Std Deviation (36.4-46.3) fL RDW Coeff of Mack (11.5-14.5) % Plt Count (130-400) K/uL MPV (7.4-10.4) fL Immature Gran % (Auto) % Neut % (Auto) % Lymph % (Auto) % Rutherford % (Auto) % Eos % (Auto) % Baso % (Auto) % Neut # (Auto) (1.4-6.5) K/uL Lymph # (Auto) (1.2-3.4) K/uL Rutherford # (Auto) (0.11-0.59) K/uL Eos # (Auto) (0-0.5) K/uL Baso # (Auto) (0-0.2) K/uL Immature Gran # (Auto) (0.00-0.02) K/uL PT 10.9 INR 1.0 APTT 25.6 PTT Ratio 0.9 D-Dimer 900 H* Sodium (136-145) mmol/L Potassium (3.5-5.1) mmol/L Chloride (98-107) mmol/L Carbon Dioxide (21-32) mmol/L Anion Gap (3-11) BUN (7-18) mg/dl Creatinine (0.6-1.2) mg/dl Est Cr Clr Drug Dosing ml/min Est GFR ( Amer) Est GFR (Non-Af Amer) BUN/Creatinine Ratio (10-20) Glucose (70-99) mg/dl Calcium (8.5-10.1) mg/dl Total Bilirubin (0.2-1) mg/dl AST (15-37) U/L ALT (12-78) U/L Alkaline Phosphatase (45-117) U/L Troponin I (0-0.045) ng/ml Total Protein (6.4-8.2) gm/dl Albumin (3.4-5.0) gm/dl Globulin (2.5-4.0) gm/dl Albumin/Globulin Ratio (0.9-2) Lipase (73-393) U/L Specimen Hemolysis Administered Medications Heparin Sodium/Dextrose (Heparin Sodium/Dextrose) 25,000 units in 500 mls @ 13 mls/hr IV .Q24H [facility]; Protocol Stop: 04/26/20 16:23 Last Titration: 03/27/20 18:57 Dose: 650 units/hr, 13 mls/hr Documented by: [id number] Cosigned by: [id number] Admin: 03/27/20 17:14 Dose: 650 units/hr, 13 mls/hr Documented by: [id number] Cosigned by: [id number] Sodium Chloride (Nss 1000ml) 1,000 mls @ 75 mls/hr IV .[id number] GEMINI Stop: 03/28/20 05:43 Last Admin: 03/27/20 17:14 Dose: 75 mls/hr Documented by: [id number] Metoprolol Tartrate (Metoprolol Tartrate 25 Mg Tab) 25 mg PO BID GEMINI Stop: 04/26/20 20:59 Last Admin: 03/27/20 17:13 Dose: 25 mg Documented by: [id number] Discontinued Medications Aspirin (Aspirin 81 Mg Chew) 243 mg PO NOW STA Stop: 03/27/20 14:37 Last Admin: 03/27/20 15:10 Dose: 243 mg Documented by: [id number] Sodium Chloride (Nss) 500 mls @ 999 mls/hr IV .Q31M GEMINI Stop: 03/27/20 12:15 Last Infusion: 03/27/20 12:35 Dose: 0 mls/hr Documented by: [id number] Admin: 03/27/20 12:04 Dose: 999 mls/hr Documented by: [id number] Heparin Sodium (Porcine) 3,000 (units/ Syringe) 3 mls @ 10 mls/min IV NOW ONE Stop: 03/27/20 17:16 Last Admin: 03/27/20 17:14 Dose: 10 mls/min Documented by: [id number] Cosigned by: [id number] Ioversol (Optiray 320 125ml) 119 ml IV ONCE ONE Stop: 03/27/20 12:44 Last Admin: 03/27/20 12:43 Dose: 119 ml Documented by: [id number] Metoprolol Tartrate (Metoprolol Tartrate 25 Mg Tab) 25 mg PO ONE STA Stop: 03/27/20 14:43 Last Admin: 03/27/20 15:10 Dose: 25 mg Documented by: [id number] Discharge Plan Visit Data Chief Complaint: Chest Pain Stated Complaint: CHEST PAIN ED Provider: Lowell Mckenzie ED Midlevel Provider: Humberto England Discharge Problem: Exertional chest pain, Elevated blood pressure reading, Family history of coronary artery disease Patient Disposition: Admitted As Inpatient Discharge Instructions Interventions: ED Discharge Assessment Last Done: 03/27/20 15:58
[2020-03-27] MEDS ORDERED: SODIUM CHLORIDE 0.9% 500 ML IV SCH (11:45)
[2020-03-27 11:47] LABS: Basophils # (auto) 0.03 K/uL (0-0.2); Basophils % (auto) 0.4 %; Eosinophils # (auto) 0.12 K/uL (0-0.5); Eosinophils % (auto) 1.8 %; Hematocrit (blood only) 39.3 % (37-47); Hemoglobin 12.9 g/dL (12.0-16.0); Immature Granulocytes # (auto) 0.01 K/uL (0.00-0.02); Immature Granulocytes % (auto) 0.1 %; Lymphocytes # (auto) 2.07 K/uL (1.2-3.4); Lymphocytes % (auto) 30.9 %; Mean Corpuscular Hemoglobin 30.7 pg (25-34); Mean Corpuscular Hgb Conc 32.8 g/dL (32-36); Mean Corpuscular Volume 93.6 fL (80-100); Mean Platelet Volume 9.5 fL (7.4-10.4); Monocytes # (auto) 0.59 K/uL (0.11-0.59); Monocytes % (auto) 8.8 %; Neutrophils # (auto) 3.88 K/uL (1.4-6.5); Platelet Count 326 K/uL (130-400); RDW Coefficient of Variation 13.5 % (11.5-14.5); RDW Standard Deviation 46.2 fL (36.4-46.3)
--- NOTE | 2020-03-27 12:04 | XRay Report ---
XR chest 1V portable HISTORY: 69 years-old Female Chest Pain acute atypical chest pain COMPARISON: Chest radiographs 09/10/2017 TECHNIQUE: Portable AP view of the chest FINDINGS: Cardiomediastinal and hilar silhouettes are within normal limits. No pneumothorax, pleural effusion, airspace consolidation or overt pulmonary edema. Bones of the chest appear grossly intact. IMPRESSION: No acute process. ACT 112: Negative or not required by law. The above report was generated using voice recognition software. It may contain grammatical, syntax o r spelling errors. Electronically signed by: Matthew Toribio M.D. 03/27/2020 12:03 PM
[2020-03-27 12:05] LABS: Alanine Aminotransferase 29 U/L (12-78); Albumin Level 3.9 gm/dl (3.4-5.0); Aspartate Aminotransferase 24 U/L (15-37); Blood Urea Nitrogen 11 mg/dl (7-18); Carbon Dioxide 27 mmol/L (21-32); Chloride 111 mmol/L (98-107); Creatinine Clr Calc Pharmacy 74.9 ml/min; Est GFR (African American) 108.1; Est GFR (Non-African American) 93.3; Glucose 95 mg/dl (70-99); Lipase 292 U/L (73-393); Potassium 3.8 mmol/L (3.5-5.1); Sodium 144 mmol/L (136-145)
[2020-03-27 12:12] LABS: Albumin Globulin Ratio 1.1 (0.9-2); Alkaline Phosphatase 76 U/L (45-117); Bilirubin,Total 0.3 mg/dl (0.2-1); Globulin 3.4 gm/dl (2.5-4.0); Total Protein 7.3 gm/dl (6.4-8.2); Troponin I < 0.015 ng/ml (0-0.045)
[2020-03-27 12:40] LABS: Partial Thromboplastin Ratio 0.9; Partial Thromboplastin Time 25.6 Seconds (21.0-31.0); Prothrombin Time 10.9 Seconds (9.0-12.0)
[2020-03-27 12:41] LABS: D Dimer 900 ug/L FEU (0-500)
[2020-03-27] MEDS ORDERED: OPTIRAY 320 125ml IV ONE (12:43)
--- NOTE | 2020-03-27 12:58 | CT Scan Report ---
CT ANGIOGRAPHY OF THE CHEST DISSECTION PROTOCOL CLINICAL HISTORY: chest pain, new htn -- r/o dissection COMPARISON STUDY: Chest radiograph September 10, 2017 and March 27, 2020. TECHNIQUE: Before and following the IV administration of 119 mL of Optiray-320, helical axial images of the chest were obtained. Maximal intensity projections and sagittal and coronal reformats were vi ewed on an independent 3D workstation. IV contrast was administered without complication. Automated exposure control was utilized for the study. A dose lowering technique was utilized adhering to the principles of ALARA. CT DOSE: 566.08 mGy.cm FINDINGS: Caliber of the thoracic aorta is normal. There is no intramural hematoma. There is no thor acic aortic dissection. The size of the heart is normal. There is no pericardial effusion. No pulmona ry emboli are present. No enlarged axillary, mediastinal or hilar lymph nodes are present. A small hi atal hernia is noted. There is no pneumothorax or pleural effusion. No consolidation is identified to suggest pneumonia. Several tiny subpleural nodules are likely benign. There is mild bilateral lower lobe bronchiectasis. Upper abdomen is unremarkable. IMPRESSION: 1. No thoracic aortic dissection. 2. No acute process within the chest. 3. Mild bronchiectasis within the bilateral lower lobes. 4. Small hiatal hernia. ACT 112: Negative or not required by law. Electronically signed by: Arpit Ly M.D. 03/27/2020 12:57 PM
[2020-03-27] MEDS ORDERED: ASPIRIN 81 MG CHEW PO STA (14:36)
--- NOTE | 2020-03-27 14:38 | History & Physical Report ---
Date of Service March 27, 2020 Assessment & Plan (1) Unstable angina: * Patient presents to the emergency department with concerning symptoms of unstable angina. Patient admittedly has had exertional chest pain which has worsened over the past year. She has ignored her symptoms as she has been caring for her ailing . Of concern today, the symptoms of central chest pain developed at rest. She describes the pain as the same that she experiences with any exercise. * Will trend troponins. * Rather than make decision to perform stress testing, will defer to cardiology and consult them for their opinion on catheterization versus traditional stress testing first. * Will make n.p.o. after midnight. * EKGs with any chest pain. * Monitor on telemetry. (2) Chest pain: * Has progressed from exertional alone to now being experienced while at r est. * See above. (3) Exertional angina: * Of concern, patient reports that she previously was able to walk around the entire [facility] without stopping. At this point, she states the last time she attempted to walk for exercise was in the spring and she had to stop on 3 separate occasions to make it around the [place]. She admittedly has not walked around the [place] since as she did not wish to experience the chest pain. * She denies associated symptoms of shortness of breath, nausea, vomiting, diaphoresis, or radiation of pain during these episodes of chest pain. * States that she previously has rested for approximately 5 minutes with complete resolve of her pain. (4) S/P total hip arthroplasty: (5) S/P total knee arthroplasty: History of Present Illness Primary Care Provider: Johann Elmore Patient is a 69-year-old female with no significant past medical history who presented to the emergency department after an episode of central chest pain that occurred earlier this morning. She holds her hand at the center of her chest and reports that it lasted for several minutes. She admits that for the past year she has been experiencing exertional chest pain. She reports that she previously was able to walk around the [facility] without issue, but admits that last time that she attempted to walk around the [place], she had to stop on 3 separate occasions secondary to onset of chest pain. She admits that she has decreased physical activity as exertion including raking leaves, vacuuming, etc. does make her chest pain symptoms worse. She states that her has had multiple medical setbacks over the last year and she has limited her care for self secondary to this. Her unprovoked chest pain this morning prompted her son to intervene and bring the patient to the emergency department for further evaluation and management. The patient reports that both her father and mother suffer from coronary artery disease. Her son reports that both he and the patient's daughter suffer from familial hypercholesterolemia for which he underwent quadruple bypass in his 40s. Patient has no history of smoking. No regular alcohol intake. Patient denies any recent travel or exposure to COVID-19 positive patients. She complains of no fevers, chills, headaches, dizziness, lightheadedness, current chest pain, palpitations, shortness of breath, dizziness, lightheadedness, nausea, or vomiting. Allergies Allergy/AdvReac Type Severity Reaction Status Date / Time CODIENE AdvReac Unknown CODIENE Uncoded 03/27/20 11:56 Home Medications Home Medications Medication Instructions Recorded Confirmed Type aspirin [Aspirin Low Dose] 81 mg PO DAILY 03/27/20 03/27/20 History ibuprofen 200 mg PO Q6H PRN 03/27/20 03/27/20 History Past Med/Surg History Surgical History S/P total hip arthroplasty S/P total knee arthroplasty Family History Other Coronary heart disease Social History Smoking Status: Never smoker Hx Alcohol Use: No Hx Substance Use: No Preferred Language: Guyanese Communication Ability: Effective Regional Sales Manager Required: No Beliefs That Will Affect Care: Zoroastrianism Zoroastrianism Beliefs: No blood transfusion Current Living Situation: Spouse Other Information That Helps Us Care for You: No Feels Safe at Home: Yes Safety Concerns: Feels Safe At This Time Assistive Devices: Glasses Review of Systems Review of Systems: A complete 10 point review of systems was reviewed with the patient with pertinent positives and negatives as per history of present illness. All else were negative. Physical Exam Physical Exam: VITAL SIGNS - Vital signs and nursing notes were reviewed. GENERAL - 69-year-old female appearing younger than her stated age who is in no acute distress. Communicates well with provider and answers questions appropriately. HEAD - NC/AT. EYES - PERRL with EOMI bilaterally. Sclera anicteric. Palpebral conjunctiva pink and moist with no injection noted. EARS - No deformities of external structures noted on gross examination bilaterally. No pain elicited with palpation of the tragus bilaterally. External auditory canals without discharge or otorrhea. Tympanic membranes pearly kaur without retraction or bulging. No fluid or purulent material visualized behind the TM. Handle of malleus, umbo, cone of light, pars tensa/flaccid all easily visualized. NOSE - Midline and without cyanosis. No epistaxis or purulent drainage noted. Septum midline without deviation or septal hematoma noted. MOUTH/OROPHARYNX - Without perioral cyanosis. Buccal mucosa pink and moist and without leukoplakia. Tongue midline with equal elevation of palate bilaterally. No tonsillar hypertrophy, erythema, or exudates noted. Good dentition noted. NECK - Neck with FROM. LUNGS - Chest wall symmetric without accessory muscle use, intercostals retractions, or central cyanosis. Normal vesicular breath sounds CTA B/L. No wheezes, rales, or rhonchi appreciated. CARDIAC - RRR with S1/S2. No murmur, rubs, or gallops appreciated. No reproducible tenderness to palpation appreciated over the anterior chest wall. ABDOMEN - Abdominal contour flat without pulsations or visible masses. BS normoactive all four quadrants. No tenderness, palpable masses, hepatosplenomegaly, or ascites noted. EXTREMITIES - No clubbing or peripheral cyanosis. No pretibial edema present. +3/5 radial and dorsalis pedis pulses palpated throughout. +5/5 strength noted in UE/LE bilaterally. NEUROLOGIC - Cranial nerves II through XII grossly intact. Sensory intact to light touch throughout. PSYCH - A&Ox3 and cooperates fully with examiner. Pt is very pleasant and interacts well with examiner. Results & Data Results & Data ([facility]) Vital Signs (Past 12 Hours) Vital Signs Temp Pulse Resp BP Pulse Ox 03/27/20 14:00 83 18 147/95 H 99 03/27/20 13:30 84 24 159/89 H 99 03/27/20 13:00 96 H 24 151/83 H 94 03/27/20 12:49 91 H 21 166/99 H 95 03/27/20 12:00 88 20 143/86 H 96 03/27/20 11:30 87 14 139/89 97 03/27/20 11:10 102 H 16 173/96 H 98 03/27/20 10:59 36.9 C 91 H 18 191/106 H 98 Supervising Physician Co-Signing Physician Notes I personally saw and examined the patient. I verified all ford points and agree with RODRIGO Villanueva with the following exceptions and/or additions: 69 yo female with concerning chronic chest pain on exertion typical for angina. Now with chest pain at rest that occurred at 1:30am, radiating to jaw and left arm lasting for around 1 hour. O/E Well appearing, HS 1+2, no murmurs, CTAB Unstable angina - unlikely NSTEMI since episode occurred at 1:30am and initial troponin in ER negative. However given convincing story of unstable angina. Only had 81mg PO aspirin this morning, therefore added 243mg stat. Start heparin IV low dose with bolus, metoprolol 25mg PO BID, statin to be based on am labs with lipid panel. NPO after midnight with cardiology consult as likely to go straight to cardiac cath. If negative would entertain chest pain secondary to esophageal etiology as lying flat when it happened and reports eating a large meal yesterday although no history of reflux or acid taste in mouth and certainly cardiac etiology appears to be more likely and more serious. PG Care Time/CCT Total # of Minutes Spent Total Time Spent with Patient: Total time spent is greater than 50% in coordination of care (as documented) at patient's floor/unit and/or counseling patient: Coding Level of Care Code 28902 OBS Care - Level 3 Diagnoses Unstable angina I20.0 Chest pain R07.2 Chest pain type: precordial pain Exertional angina I20.8 S/P total hip arthroplasty Z96.643 Laterality: bilateral S/P total knee arthroplasty Z96.652 Laterality: left Time Spent (min) 35 (1) S/P total hip arthroplasty Laterality: bilateral Qualified Code(s): Z96.643 - Presence of artificial hip joint, bilateral (2) S/P total knee arthroplasty Laterality: left Qualified Code(s): Z96.652 - Presence of left artificial knee joint (3) Chest pain Chest pain type: precordial pain Qualified Code(s): R07.2 - Precordial pain
[2020-03-27] MEDS ORDERED: METOPROLOL TARTRATE 25 MG TAB PO STA (14:42)
[2020-03-27] MEDS ORDERED: SODIUM CHLORIDE 0.9% 1000ML 1,000 ML IV SCH (16:24)
[2020-03-27] MEDS ORDERED: NITROGLYCERIN SL 0.4 MG/TAB TAB SL PRN (16:24)
[2020-03-27] MEDS ORDERED: ACETAMINOPHEN 325 MG TAB PO PRN (16:24)
[2020-03-27] MEDS ORDERED: HEPARIN SODIUM/DEXTROSE 25,000 UNITS/500 ML BAG IV SCH (16:24)
[2020-03-27] MEDS ORDERED: ONDANSETRON INJ 2 MG/ML 2 ML VIAL IV PRN (16:24)
[2020-03-27] MEDS ORDERED: Heparin IV Low Dose WITH Bolus IV SCH (16:45)
[2020-03-27] MEDS: METOPROLOL TARTRATE 25 MG TAB PO SCH (17:13)
[2020-03-27] MEDS ORDERED: HEPARIN IV BOLUS 3,000 UNITS in SYRINGE 0 ML IV ONE (17:15)
[2020-03-27 20:53] LABS: Appearance Urine Clear (Clear); Bacteria Urine Automated Negative (Negative); Bilirubin Urine Negative (Negative); Blood Urine Trace (Negative); Cast Urine Automated 0 /lpf (0-5); Color Urine Yellow; Glucose Urine UA Negative (Negative); Ketones Urine Negative (Negative); Leukocyte Esterase Urine Negative (Negative); Nitrite Urine Negative (Negative); Protein Urine Negative (Negative); RBC Urine Automated 0-4 /hpf (0-4); Specific Gravity Urine 1.043 (1.000-1.030); Urobilinogen Urine Negative (Negative); pH Urine 6.5 (4.5-7.5)
[2020-03-28 00:01] LABS: Partial Thromboplastin Ratio 1.6; Partial Thromboplastin Time 44.7 Seconds (21.0-31.0)
[2020-03-28 06:52] LABS: Basophils # (auto) 0.03 K/uL (0-0.2); Basophils % (auto) 0.5 %; Eosinophils # (auto) 0.22 K/uL (0-0.5); Eosinophils % (auto) 3.5 %; Hematocrit (blood only) 38.3 % (37-47); Hemoglobin 12.1 g/dL (12.0-16.0); Lymphocytes % (auto) 36.6 %; Mean Corpuscular Hemoglobin 29.7 pg (25-34); Mean Corpuscular Hgb Conc 31.6 g/dL (32-36); Mean Corpuscular Volume 93.9 fL (80-100); Mean Platelet Volume 9.4 fL (7.4-10.4); Monocytes # (auto) 0.52 K/uL (0.11-0.59); Monocytes % (auto) 8.3 %; Neutrophils # (auto) 3.22 K/uL (1.4-6.5); Neutrophils % (auto) 51.1 %; Platelet Count 292 K/uL (130-400); RDW Coefficient of Variation 13.6 % (11.5-14.5); RDW Standard Deviation 46.8 fL (36.4-46.3); Red Blood Count 4.08 M/uL (4.2-5.4); White Blood Count 6.29 K/uL (4.8-10.8)
[2020-03-28 07:02] LABS: Partial Thromboplastin Ratio 1.5; Partial Thromboplastin Time 40.5 Seconds (21.0-31.0)
[2020-03-28 07:21] LABS: BUN Creatinine Ratio 21.4 (10-20); Blood Urea Nitrogen 11 mg/dl (7-18); Calcium 8.3 mg/dl (8.5-10.1); Carbon Dioxide 27 mmol/L (21-32); Chloride 112 mmol/L (98-107); Cholesterol 195 mg/dl (0-200); Creatinine Clr Calc Pharmacy 87.1 ml/min; Est GFR (African American) 113.6; Glucose 93 mg/dl (70-99); Magnesium 2.1 mg/dl (1.8-2.4); Potassium 3.3 mmol/L (3.5-5.1); Sodium 144 mmol/L (136-145)
[2020-03-28 07:25] LABS: Chol HDL Ratio 3; HDL Cholesterol 65 mg/dl; LDL Cholesterol Calculated 115 mg/dl; Phosphorus 3.6 mg/dl (2.5-4.9); Triglycerides 75 mg/dl (0-150); Troponin I < 0.015 ng/ml (0-0.045); VLDL Cholesterol 15 mg/dl
[2020-03-28 07:32] LABS: Estimated Average Glucose 117 mg/dl; Hemoglobin A1C 5.7 % (4.5-5.6)
[2020-03-28] MEDS ORDERED: niCARdipine HCL INJ 2.5 MG/ML 10 ML AMP ONE (08:33)
[2020-03-28] MEDS ORDERED: HEPARIN (PORCINE) 1000 UNIT/ML 10 ML (CATH LAB USE ONLY) ONE (08:33)
[2020-03-28] MEDS ORDERED: MIDAZOLAM HCL 1 MG/ML 2ML VIAL ONE (08:34)
[2020-03-28] MEDS ORDERED: fentaNYL citrate 100 MCG/2 ML VIAL ONE (08:34)
[2020-03-28] MEDS ORDERED: NITROGLYCERIN/D5W 100MCG/ML 20ML SYR ONE (08:35)
--- NOTE | 2020-03-28 08:59 | Cardiology Consultation ---
Date of Consultation March 28, 2020 Assessment & Plan (1) Unstable angina: 2. Hypertension 3. Family history of coronary artery disease Recent chest pain consistent with typical angina now with episode occurring at rest. Story concerning for ACS and recommend additional risk stratification. We discussed options including stress test versus cardiac catheterization. With risk factors wishes to proceed directly with cardiac catheterization. Plan to perform later today via right radial artery. Covid test pending In interim keep NPO, continue heparin infusion. Continue beta-brown, aspirin, statin. Further recommendations pending findings. History of Present Illness Attending Physician: Kahlil Gallegos, History of Present Illness Mrs. Duran is a very pleasant 69-year-old woman seen today in the setting of chest pain concerning for accelerating angina. Minimal past medical history. Osteoarthritis post 2 hip replacements and revision and one knee replacement. Has a family history of premature CAD. Father of an NH in his 40s, mother in her 60s. Her son Dean is a patient of mine and recently underwent CABG in his 40s. There is a question of familial hypercholesterolemia. Patient reports exertional angina for months. Gives example that was previously able to walk around the [employer] multiple times without sym ptoms. Now with walking has to stop due to chest pain. States most recently had to stop 3 times before making around 1 time. Chest pain is relieved with rest. The night prior to admission was woken up with similar chest pain that radiated to her arm and jaw. Pain lasted for about an hour and went away with attempts to relax. In ED hypertensive up to the 170s. She has been chest pain-free. ECG showed sinus rhythm with subtle lateral ST depressions. Troponin has been negative x3. Telemetry unremarkable. Started on heparin infusion. Social history: . Still works as a realtor. No tobacco history. Denies heavy alcohol use. Allergies Allergy/AdvReac Type Severity Reaction Status Date / Time CODIENE AdvReac Unknown CODIENE Uncoded 03/27/20 11:56 Home Medications Home Medications Medication Instructions Recorded Confirmed Type aspirin [Aspirin Low Dose] 81 mg PO DAILY 03/27/20 03/27/20 History ibuprofen 200 mg PO Q6H PRN 03/27/20 03/27/20 History Patient History Surgical History S/P total hip arthroplasty S/P total knee arthroplasty Family History Other Coronary heart disease Social History Smoking Status: Never smoker Hx Alcohol Use: No Hx Substance Use: No Preferred Language: Greenlandic Communication Ability: Effective Roll Over Press Operator Required: No Beliefs That Will Affect Care: Moravian Moravian Beliefs: No blood transfusion Current Living Situation: Spouse Other Information That Helps Us Care for You: No Feels Safe at Home: Yes Safety Concerns: Feels Safe At This Time Assistive Devices: Glasses Review of Systems Review of Systems: All systems reviewed & are unremarkable except as noted in HPI & below Physical Exam Physical Exam: General: Comfortable, no acute distress Eyes: Sclerae anicteric, extraocular movements intact HENT: Oropharynx clear mucous membranes moist Neck: Normal carotid upstrokes, no bruits. No JVD. Lungs: Clear to auscultation bilaterally, no rhonchi or wheezes Cardiac: Regular rate and rhythm, no murmurs, rubs or gallops. Vascular: 2+ radial, DP and PT pulses. Abdomen: Soft, nontender, nondistended, positive bowel sounds. Extremities: Well perfused, no peripheral edema Skin: No rashes or lesions. Neuro: Nonfocal Psych: Alert orient x3, normal affect and mood Results & Data ([facility]) Vital Signs (Past 12 Hours) Vital Signs Temp Pulse Resp BP Pulse Ox 03/28/20 07:39 97.5 F L 77 18 165/92 H 96 03/28/20 03:03 97.9 F 77 18 125/80 94 03/27/20 23:23 98.1 F 71 18 117/60 94 PG Care Time/CCT Total # of Minutes Spent Total Time Spent with Patient: Total time spent is greater than 50% in coordination of care (as documented) at patient's floor/unit and/or counseling patient: Coding Level of Care Code 03060 Inpt Consult Level 4 Diagnoses Unstable angina I20.0
[2020-03-28] MEDS ORDERED: ATORVASTATIN 20 MG TAB PO SCH (09:00)
[2020-03-28] MEDS ORDERED: ASPIRIN 81 MG ECTAB PO SCH (09:00)
[2020-03-28] MEDS: METOPROLOL TARTRATE 25 MG TAB PO SCH (09:09)
--- NOTE | 2020-03-28 10:26 | Electrocardiogram Report ---
Test Reason : Blood Pressure : / mmHG Vent. Rate : 100 BPM Atrial Rate : 100 BPM P-R Int : 146 ms QRS Dur : 082 ms QT Int : 354 ms P-R-T Axes : 059 028 076 degrees QTc Int : 456 ms Normal sinus rhythm Nonspecific ST and T wave abnormality Abnormal ECG When compared with ECG of 10-SEP-2017 12:06, Nonspecific T wave abnormality no longer evident in Inferior leads Confirmed by Christian Mercado ([id number]) on 03/28/2020 10:25:36 AM Referred By: REFERRED SELF Confirmed By:Christian Mercado
--- NOTE | 2020-03-28 12:09 | Pre Anesthesia Assessment ---
Date of Service March 28, 2020 Pre Sedation Assessment Vital Signs Temp Pulse Pulse Resp BP BP Pulse Ox 03/28/20 07:39 97.5 F L 77 18 165/92 H 96 03/28/20 03:03 97.9 F 77 18 125/80 94 03/27/20 23:23 98.1 F 71 18 117/60 94 03/27/20 19:54 97.7 F 70 20 138/79 94 03/27/20 16:26 98.4 F 85 18 122/71 96 03/27/20 15:31 87 22 135/71 97 03/27/20 15:30 93 H 22 97 03/27/20 15:00 88 23 163/96 H 97 03/27/20 14:34 96 H 20 172/92 H 97 03/27/20 14:00 83 18 147/95 H 99 03/27/20 13:30 84 24 159/89 H 99 03/27/20 13:00 96 H 24 151/83 H 94 03/27/20 12:49 91 H 21 166/99 H 95 Cardiovascular RRR, no murmur, no edema Respiratory normal respiratory effort, lungs clear to auscultation Pre-Sedation Airway Assessment Smoking Status: Never smoker Hx Sleep Apnea: No Hx Difficult Intubation: No Short, Thick Neck: No Thyromental Distance: > or= 3.5 Finger Breadths Oral Cavity: + WNL Mallampati Class: III ASA: ASA3E Procedure Planning Contraindications for Sedation: none Current Medications Reviewed: Yes Notes The planned sedation has been discussed with the patient. Informed Consent was obtained. I have identified the patient, determined the appropriateness of sedation and have assessed the patient immediately prior to the procedure. All medicine(s) and interventions are by my order.
--- NOTE | 2020-03-28 13:17 | Post Anesthesia Assessment ---
Date of Service March 28, 2020 Post Sedation Assessment Vital Signs Temp Pulse Pulse Resp BP BP Pulse Ox 03/28/20 13:22 97.9 F 83 18 162/78 H 97 03/28/20 07:39 97.5 F L 77 18 165/92 H 96 03/28/20 03:03 97.9 F 77 18 125/80 94 03/27/20 23:23 98.1 F 71 18 117/60 94 03/27/20 19:54 97.7 F 70 20 138/79 94 03/27/20 16:26 98.4 F 85 18 122/71 96 03/27/20 15:31 87 22 135/71 97 03/27/20 15:30 93 H 22 97 03/27/20 15:00 88 23 163/96 H 97 03/27/20 14:34 96 H 20 172/92 H 97 03/27/20 14:00 83 18 147/95 H 99 03/27/20 13:30 84 24 159/89 H 99 Recovery Score Activity: Moves 4 extremities Respiration: Deep Breath/Cough Circulation: +/-20% PreAnes Value Consciousness: Fully Awake Oxygen Saturation: O2 needed for >90% Discharge Sedation Level of Care: Fast Track Phase II Post Sedation Plan On clinical assessment, the patient appears to have tolerated the sedation without complications. Patient is recovering as anticipated. Patient will continue to be monitored by nursing and may be discharged when sedation discharge criteria are met per below protocol. Upon Completions of procedure up to 15 minutes continue every 5 minute vital signs and the P.A.R. score; then discharge to a Phase I or Fast Track to Phase II per the following guidelines: * Discharge Patient to appropriate Phase II area if PAR is 8 or greater or return to pre- procedure baseline. The post - procedure orders will be as directed. * If PAR score is less than 8 or not return to pre-procedure baseline then patient will follow Phase I monitoring till PAR is reached for Phase II. The Phase I may be done in procedure room or may call to secure a Phase I area. * If naloxone or flumazenil are used for reversal, hold in Phase I for continued monitoring from when last reversal dose was given for a minimum of 60 minutes or longer pending the nurse and/or physician discretion of patient condition before discharge to Phase II. Please call the Sedation Physician to re-evaluate and complete post-note for discharge to Phase II area. Do NOT discharge from procedure sedation or Phase 1 until post- sedation evaluation note is complete by procedure /sedation MD Sedation Discharge Instructions to be given to the patient at discharge to home.
[2020-03-28] MEDS ORDERED: LABETALOL HCL IV 5 MG/ML 20ML (CATH LAB USE ONLY) ONE (13:23)
--- NOTE | 2020-03-28 13:44 | Cardiac Catheterization ---
[facility] Data: Director Process Engineering Cardiac Status Clinical evaluation leading to the procedure CAD Presenation: Unstable angina Anginal Classification: CCS IV Heart Failure: No Cardiogenic Shock within 24 Hours: No Cardiac Arrest within 24 Hours: No Imaging Studies Past 6 Months: Yes Stress Studies Past 6 Months: No Diagnostic Physicians Name: Sumanth Mariee MD Status: Elective Closure Device Percutaneous Entry Location: Radial Closure Device: Radial Band Recommendations: Medical Therapy and/or Counseling and Management Recommendatons (Transfer to [facility] cardiac surgery) Intraprocedure Events Significant Disection: Yes Perforation: No Cardiac Cath Procedure Full Procedure Date March 28, 2020 Pre-Procedure Diagnosis Pre-Procedure Diagnosis: Acute Coronary Syndrome AUC Score AUC Score: 7 Post-Procedure Diagnosis Post-Procedure Diagnosis: Severe CAD and Normal Intracardiac Pressures Procedure(s) Performed Procedure(s) Performed: Coronary Angiography and Left Heart Cath Spray Gun Operator Sumanth Mariee MD Home Sales Consultant(s) Marissauck Estimated Blood Loss Estimated Blood Loss: 10 Medication(s) Medication(s): Fentanyl, Heparin, Labetalol, Nicardipine, Nitroglycerin and Versed Summary of Findings Indication: Unstable angina Access: 6 Fr slender right radial artery Catheters: Garett AR-1 Findings: LM -normal caliber, luminal irregularities LAD -diffuse 40% ostial to mid disease. Distal vessel without significant disease return apex. Large first diagonal without significant disease. Circumflex -medium caliber vessel, diffuse moderate mid to distal disease up to 70% just after takeoff of small OM 2. RCA -dominant, mild diffuse disease, subtotal mid RCA occlusion just after takeoff of RV branch. Minimal distal antegrade flow. Distal vessel fills retrograde via robust left to right collaterals. LVEDP -16 Attempted PCI of mid RCA subtotal occlusion: RCA cannulated with AR-1 guide Chain Maker Hand 50 wire navigated into mid RCA With test injection noted to have dissection extending into proximal RCA and retrograde back into sinus of Valsalva. No evidence of significant extension into aortic root. Flow to mid RCA/RV branch uncompromised. Echocardiogram showed no obvious dissection flap. No significant AI. No pericardial effusion. Preserved LV function with no regional wall motion abnormalities. Patient remained chest pain-free, hemodynamically stable with pressures up to 160s. In the setting of limited guide induced dissection extending to aorta decision made to abort procedure and transfer for additional imaging, evaluation by cardiac surgery. Arterial Closure: TR band Summary: 1. Severe multivessel coronary artery disease -Subtotal mid RCA occlusion with brisk ooox-da-coewx collaterals Diffuse mid to distal circumflex disease up to 70% Diffuse 40% proximal to mid LAD disease 2. Normal intracardiac filling pressure 3. Unsuccessful PCI of subtotal RCA occlusion. 4. Limited guideinduced RCA dissection extending retrograde to sinus of Valsalva. Recommendations: Plan to transfer to [facility] cardiac surgery for further imaging, observation. Blood pressure control with labetalol infusion Hemodynamics Rest Ao:: 158/78/113 Final Ao: 148/78/112 LV: 154/17 Recommendations Recommendations: Medical Therapy and/or Counseling and Management Recommendatons (Transfer to [facility] cardiac surgery) Specimens Specimens: None Radiation Exposure (mGy) 1106 Contrast (mls) 55 Drains Drains: None Anesthesia Moderate Procedural Complication(s) None Disposition Director Process Engineering Holding/Recovery I attest to the content of the Intraoperative Record and any orders documented therein. Any exceptions are noted below. [facility] Card Cath Procedure Codes Cardiac Catheterization Procedure 1: Cardiovascular Cath Procedures: 52205 Coronaries and LHC (+/-LV) Moderate Sedation Procedure 1: Sedation/Anesthesia: 28198 Mod Sedation by the same physician;Init15 Min Child Age 5 & Up PG Care Time/CCT Total # of Minutes Spent Total Time Spent with Patient: Total time spent is greater than 50% in coordination of care (as documented) at patient's floor/unit and/or counseling patient:
[2020-03-28] MEDS ORDERED: ATROPINE SULFATE 0.1 MG/ML 10ML SYR IV ONE (13:46)
[2020-03-28] MEDS ORDERED: DOPamine 400MG / 250ML D5W (Cath Lab Use ONLY) ONE (13:48)
[2020-03-28] MEDS ORDERED: NOREPINEPHRINE BITARTRATE 1 MG/ML 4 ML VIAL (CATH LAB USE ONLY) ONE (14:03)
[2020-03-28] MEDS ORDERED: ONDANSETRON INJ 2 MG/ML 2 ML VIAL ONE (14:11)
--- NOTE | 2020-03-28 14:26 | XRay Report ---
SINGLE VIEW CHEST CLINICAL HISTORY: Atypical chest pain. FINDINGS: An AP, portable, upright chest radiograph is compared to chest x-ray and chest CT dated 03/2020. The examination is mildly degraded by portable technique and patient rotation. The cardiom ediastinal silhouette is unremarkable. There is minimal left basilar atelectasis. The lungs and pleur al spaces are otherwise clear. No pneumothorax is seen. The skeletal structures are osteopenic. The b sonali thorax is grossly intact. Degenerative change is noted in the shoulders. IMPRESSION: No active disease in the chest. ACT 112: Negative or not required by law. Electronically signed by: Kam Miller M.D. 03/28/2020 2:24 PM
[2020-03-28 14:55] LABS: Basophils # (auto) 0.01 K/uL (0-0.2); Basophils % (auto) 0.1 %; Hematocrit (blood only) 36.2 % (37-47); Hemoglobin 11.4 g/dL (12.0-16.0); Immature Granulocytes # (auto) 0.01 K/uL (0.00-0.02); Immature Granulocytes % (auto) 0.1 %; Lymphocytes # (auto) 0.98 K/uL (1.2-3.4); Lymphocytes % (auto) 11.7 %; Mean Corpuscular Hemoglobin 29.5 pg (25-34); Mean Corpuscular Volume 93.8 fL (80-100); Mean Platelet Volume 9.5 fL (7.4-10.4); Monocytes # (auto) 0.26 K/uL (0.11-0.59); Monocytes % (auto) 3.1 %; Neutrophils # (auto) 7.13 K/uL (1.4-6.5); Platelet Count 292 K/uL (130-400); RDW Coefficient of Variation 13.3 % (11.5-14.5); RDW Standard Deviation 45.9 fL (36.4-46.3); Red Blood Count 3.86 M/uL (4.2-5.4); White Blood Count 8.39 K/uL (4.8-10.8)
[2020-03-28 15:04] LABS: INR 1.1 (0.9-1.1); Prothrombin Time 11.4 Seconds (9.0-12.0)
--- NOTE | 2020-03-28 15:07 | Discharge Summary ---
Date of Service March 28, 2020 Admission HPI Per Admitting Provider Patient is a 69-year-old female with no significant past medical history who presented to the emergency department after an episode of central chest pain that occurred earlier this morning. She holds her hand at the center of her chest and reports that it lasted for several minutes. She admits that for the past year she has been experiencing exertional chest pain. She reports that she previously was able to walk around the [facility] without issue, but admits that last time that she attempted to walk around the [place], she had to stop on 3 separate occasions secondary to onset of chest pain. She admits that she has decreased physical activity as exertion including raking leaves, vacuuming, etc. does make her chest pain symptoms worse. She states that her has had multiple medical setbacks over the last year and she has limited her care for self secondary to this. Her unprovoked chest pain this morning prompted her son to intervene and bring the patient to the emergency department for further evaluation and management. The patient reports that both her father and mother suffer from coronary artery disease. Her son reports that both he and the patient's daughter suffer from familial hypercholesterolemia for which he underwent quadruple bypass in his 40s. Patient has no history of smoking. No regular alcohol intake. Patient denies any recent travel or exposure to COVID-19 positive patients. She complains of no fevers, chills, headaches, dizziness, lightheadedness, current chest pain, palpitations, shortness of breath, dizziness, lightheadedness, nausea, or vomiting. Discharge Data Consultations 03/27/20 13:21 ED Decision to Admit Stat 03/27/20 16:24 Consult Cardiology Routine Procedures Performed Operation Date: 03/28/20 11:00 Actual Procedures p Cath, Left with Cors and Vent - Davion Mariee MD s Cineradiography w/Routine Exam - Davion Mariee MD Hospital Course (1) Multi-vessel coronary artery stenosis: Patient here with chest pain concerning for accelerating angina. Underwent cardiac catheterization which revealed a subtotal mid RCA occlusion with brisk left to right collaterals. Also found to have diffuse 40% proximal to mid LAD disease and diffuse moderate to severe circumflex disease. RCA lesion looked to be acute on chronic and attempt made to intervene on RCA. 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 Dissection appeared limited to sinus of valsalva. Patient chest pain free and initially hemodynamically and electrically stable. Echocardiogram in research laboratory manager showed normal LV function, no obvious aortic dissection, no AI and no pericardial effusion. Decision made to transfer to [facility] for further monitoring/imaging and possible need for cardiac surgery care. Patient started on labetalol for SBP to 160s. While awaiting transport she became bradycardic to 30s and hypotensive to 70s. Given atropine, IV fluids and started on dopamine which was eventually transitioned to norepinephrine. Left radial A line place and triple lumen placed to RT CFV. Repeat echo again negative for pericardial effusion. There was questionable LT pleural effusion. No significant effusion seen on repeat chest xray. Repeat hemoglobin down from 12 to 11.4. At time of transport patient chest pain free. Stable MAPs in 70-80s on 0.08 norepi. Coding Level of Care Code D/C Day Management >30 mins Diagnoses Multi-vessel coronary artery stenosis I25.10
[2020-03-28 15:12] LABS: Calcium 7.6 mg/dl (8.5-10.1); Est GFR (African American) 117.7; Est GFR (Non-African American) 101.6; Mean Corpuscular Hgb Conc 31.5 g/dL (32-36); Potassium 3.3 mmol/L (3.5-5.1)
--- NOTE | 2020-03-28 15:16 | Procedure Note ---
Procedure Note Date of Service March 28, 2020 Note Indication: Hemodynamic instability in the setting of possible aortic dissection. Procedure: - RT groin prepped in sterile fashion. - Local anesthesia with lidocaine - Triple lumen catheter placed to RT CFV - Catheter sutured into place. - LT wrist prepped in sterile fashion. - Local anesthesia with lidocaine - Under ultrasound guidance LT radial artery accessed and arterial catheter placed - Catheter sutured into place. Summary: 1. Successful placement of triple lumen catheter to RT CFV 2. Successful placement of LT radial arterial line under ultrasound guidance. Coding CPT Codes Tubes, Drains, and Vasc Access - Tubes, Drains, and Vasc Access: [id number] Insertion Catheter, Artery ([id number]) Tubes, Drains, and Vasc Access - Tubes, Drains, and Vasc Access: [id number] Ultrasound Guidance For Vascular ([id number]) Tubes, Drains, and Vasc Access - Tubes, Drains, and Vasc Access: [id number] Insertion Of Non-tunneled Catheter Age 3 Yrs> ([id number]) [facility] [place] Procedure Codes (Charges) Tubes, Drains, and Vasc Access Procedure 1: Tubes, Drains, and Vasc Access: [id number] Insertion Catheter, Artery Procedure 2: Tubes, Drains, and Vasc Access: [id number] Ultrasound Guidance For Vascular Procedure 3: Tubes, Drains, and Vasc Access: [id number] Insertion Of Non-tunneled Catheter Age 3 Yrs>
[2020-03-28 15:36] LABS: Troponin I 0.082 ng/ml (0-0.045)
--- NOTE | 2020-03-28 15:38 | XCELERA ---
[id number] \\[id number]_[id number]}___[id number].pdf
--- NOTE | 2020-03-28 15:40 | XCELERA ---
[id number] \\[id number]\PDF_Reports\[id number]}___[id number].pdf
--- NOTE | 2020-03-28 16:16 | Electrocardiogram Report ---
Test Reason : Blood Pressure : / mmHG Vent. Rate : 076 BPM Atrial Rate : 076 BPM P-R Int : 156 ms QRS Dur : 078 ms QT Int : 446 ms P-R-T Axes : 069 043 005 degrees QTc Int : 501 ms Normal sinus rhythm Nonspecific T wave abnormality Prolonged QT Abnormal ECG When compared with ECG of 27-MAR-2020 11:09, Nonspecific T wave abnormality now evident in Inferior leads Confirmed by Christian Mercado ([id number]) on 03/28/2020 4:15:33 PM Referred By: REFERRED SELF Confirmed By:Christian Mercado
== END 2020-03-28 15:07 | disposition short-term general hospital (02) ==
LOC: 2S 10:55 → ED 10:55 → SUATTDRO 15:34 → 2S 15:58